=== PATIENT | female | born 1980 | race Caucasian/White ===

== ENCOUNTER 2024-10-03 07:00 | Day surgery (SDC) | payer OTHER ==
[2024-09-30 08:34] VITALS: BP 116/64
[~2024-10-03] VITALS: Ht 175.3 cm; Wt 115.0 kg
[~2024-10-03 07:00] MED LIST: BACTRIM DS TAB1 EACH PO; IBLOOD GLUCOSE TEST STRIP 1 EA TEST VI PRN; LACTATED RINGER'S 1,000 ML IV SCH; LIDOCAINE HCL 1% 5 ML SDV INJ ONE; MELOXICAM15 MG PO; MOUNJARO5 MG/0.5 M SUB-Q; VITAMIN B121000 MCG PO; VITAMIN D3125 MCG PO; XANAX0.25 MG PO
[2024-10-03 07:10] VITALS: BP 122/77
--- NOTE | 2024-10-03 07:29 | NUR ---
PT NOT AVAILABLE FOR VISIT. PROVIDED PRAYER.
[2024-10-03] MEDS ORDERED: MIDAZOLAM HCL 2 MG/2 ML VIAL ONE (09:00)
[2024-10-03] MEDS ORDERED: DEXAMETHASONE SOD PHOS 4 MG/ML VIAL ONE (09:00)
[2024-10-03] MEDS ORDERED: ondansetron HCL 4 MG/2 ML VIAL ONE (09:00)
[2024-10-03] MEDS ORDERED: ACETAMINOPHEN 1,000 MG/100 ML VIAL ONE (09:00)
[2024-10-03] MEDS ORDERED: fentaNYL citrate 100 MCG/2 ML VIAL ONE (09:00)
[2024-10-03] MEDS ORDERED: propofoL 200 MG/20 ML VIAL ONE (09:00)
[2024-10-03] MEDS ORDERED: LIDOCAINE HCL 2% 5 ML SDV ONE (09:00)
[2024-10-03] MEDS ORDERED: KETOROLAC TROMETHAMINE 30 MG/ML VIAL ONE (09:00)
[2024-10-03] MEDS ORDERED: FAMOTIDINE 20 MG/ 2 ML VIAL IV PRN (09:45)
[2024-10-03] MEDS ORDERED: HYDROmorphone HCL 1 MG/ML SYR IV PRN (09:45)
[2024-10-03] MEDS ORDERED: fentaNYL citrate 50 MCG/ML SDV IV PRN (09:45)
[2024-10-03] MEDS ORDERED: ondansetron HCL 4 MG/2 ML VIAL IV PRN ×2 (09:45)
[2024-10-03] MEDS ORDERED: NALOXONE HCL 0.4 MG SYR IV PRN ×2 (09:45)
[2024-10-03] MEDS ORDERED: MAGNESIUM HYDROXIDE/AL HYDROX 30 ML CUP PO PRN (09:45)
[2024-10-03] MEDS ORDERED: PROCHLORPERAZINE EDISYLATE 10 MG/2 ML VIAL IV PRN (09:45)
[2024-10-03] MEDS ORDERED: IBLOOD GLUCOSE TEST STRIP 1 EA TEST VI PRN (09:45)
[2024-10-03] MEDS ORDERED: droPERidol 5 MG/2 ML VIAL IV PRN (09:45)
[2024-10-03 10:25] VITALS: BP 107/60
--- NOTE | 2024-10-03 10:54 | NUR ---
10/03/24 1054 Faustina Mireles 0947- PT ARRIVES TO THE PACU WITH A NATURAL AIRWAY ON ROOM AIR. BREATHING IS EVEN AND UNLABORED. PT DENIES PAIN AND NAUSEA. SURGICAL SITE SHOWED A SMALL AMOUNT OF DRAINAGE ON THE PERIPAD. ABDOMEN IS SOFT AND NON DISTENDED. PT SHOWS NO SIGNS OF APPARENT DISTRESS. VSS. ALL MONITORS PUT IN PLACE. PT RESTING WITH EYES CLOSED. PT ORIENTED TO PACU. LR INUSING IN R FOREARM. 0950- PT WAKES EASILY TO VERBAL STIMULI. PT REQUESTING WATER. PT BACK TO RESTING WITH EYES CLOSED. PT REORIENTED TO PACU AND ASKING FOR WATER SHORTLY AFTER. 1015- PT WAKES EASILY. HOB INCREASED AND PT SIPPING ON WATER, AND TOLERATING WELL. PT REPORTS BEING UNCOMFORTABLE BUT NOT PAINFUL AND GIVES THE DISCOMFORT A 1/10. PT TALKING WITH RN. 1020- DC INSTRUCTIONS GONE OVER. NO QUESTIONS OR CONCERNS. SURGICAL SITE SHOWS NO NEW DRAINAGE. 1030- ALL MONITORS REMOVED. IV DC'D. PT DRESSING INDEPENDENTLY WITH NO ISSUES. PT HAS ALL BELONGINGS AND DC PAPERWORK. PT IS ABLE TO AMBULATE INDEPENDENTLY WITH A STEADY AND EVEN GAIT TO THE WHEELCHAIR. PT DC FROM PACU VIA WHEELCHAIR WITH VOLUNTEER AT THIS TIME.
--- NOTE | 2024-10-04 21:41 | OR ---
[facility] [address], [place] [address] Signed DATE OF OPERATION: 10/03/2024 SURGEON: Angie Qureshi DO PREOPERATIVE DIAGNOSES: 1. Abnormal uterine bleeding. 2. Endometrial polyp. POSTOPERATIVE DIAGNOSES: 1. Abnormal uterine bleeding. 2. Endometrial polyp. PROCEDURES PERFORMED: 1. Hysteroscopy, D and C. 2. Polypectomy. ANESTHESIA: MAC. ESTIMATED BLOOD LOSS: 5 mL. SPECIMEN: Endometrial curettings and polyp. FLUID DEFICIT: 150 mL. FINDINGS: Normal external genitalia with normal clitoris, urethral meatus, bilateral [place]'s, and Bartholin's glands. Normal vagina and cervix. On hysteroscopy, normal endocervical canal. Endometrial cavity demonstrated thickened irregular endometrium with multiple polyps that were excised in total, restoring normal endometrial architecture. COMPLICATIONS: None. INDICATIONS: Ms. Whitaker is a very pleasant 44-year-old female with abnormal bleeding on Nexplanon. Ultrasound demonstrated thickened irregular endometrium and likely polyp. She was Electronically Signed By: ANGIE QURESHI DO (JD) 10/04/24 2141 PATIENT NAME: KAELA WHITAKER OPERATIVE REPORT DATE OF : 82 REPORT #: [id number] PHYSICIAN: ANGIE QURESHI DO (JD) PCP: FELICIA SINGER PAC REPORT IS CONFIDENTIAL AND NOT TO BE RELEASED WITHOUT AUTHORIZATION [address] [address] Signed consented for hysteroscopy, D and C, and request that this be performed in the OR due to anxiety. The risks, benefits, and alternatives were discussed in detail with the patient. The patient understands and wished to proceed with the procedure. DESCRIPTION OF PROCEDURE: The patient was taken to the OR where a time-out was performed to confirm correct patient and correct procedure. MAC anesthesia was adequately established. The patient was prepped and draped in the dorsal lithotomy position with her feet in Yellofin stirrups. ICPs were on and running and no preoperative antibiotics or heparin was indicated. A weighted speculum was placed in the vagina and the anterior lip of the cervix was grasped with an Allis clamp. Cervix was gently dilated to #7 Hegar dilator. Operative hysteroscope was then placed in the cervical os and advanced under direct visualization into the uterine cavity. Normal endocervical canal was noted. The endometrial cavity demonstrates thickened irregular endometrium with multiple endometrial polyps. Bilateral tubal ostia were identified. MyoSure Lite device was selected and polypectomy and circumferential curettage was performed restoring normal endometrial architecture. The scope was slowly withdrawn and biopsy was sent to pathology for further evaluation. Fluid deficit noted to be 150 mL. The Allis clamp was removed and the patient was taken to PACU in good and stable condition. Sponge, needle and instrument count was correct x2 at the end of the procedure. DO JAYNE Pittman/NANCY /[id number] Copies: ~ Electronically Signed By: ANGIE QURESHI DO (JD) 10/04/24 2141 PATIENT NAME: KAELA WHITAKER OPERATIVE REPORT DATE OF : 82 REPORT #: [id number] PHYSICIAN: ANGIE QURESHI) PCP: FELICIA SINGER PAC REPORT IS CONFIDENTIAL AND NOT TO BE RELEASED WITHOUT AUTHORIZATION
--- NOTE | 2024-10-07 13:19 | PATH ---
[facility] [address] [facility], [place] [address] Signed SPECIMEN(S): A ENDOMETRIAL CURETTINGS, POLYPS SPECIMEN SOURCE: A. ENDOMETRIAL CURETTINGS, POLYPS CLINICAL HISTORY: Abnormal uterine bleeding, endometrial polyp FINAL PATHOLOGIC DIAGNOSIS: Endometrial curettings, polyps: - Weakly proliferative endometrium with polypoid features, negative for hyperplasia or atypia. JVR:cml MICROSCOPIC EXAMINATION: Histologic sections of all submitted blocks are examined by light microscopy. These findings, together with the gross examination, support the pathologic diagnosis. GROSS DESCRIPTION: The specimen, labeled and designated "Marv, R, endometrial curettings, polyps," is received in formalin and consists of multiple fragments of soft squires tissue measuring 2.8 x 2.6 x 0.5 cm in aggregate. Entirely submitted in (A1). AB (under the direct supervision of a pathologist) The Gross Description was prepared using a voice recognition system. The report was reviewed for accuracy; however, sound-alike word errors, addition and/or deletions may occur. If there is any question about this report, please contact Client Services. PERFORMING LABORATORY: Technical component was performed by [facility], [address] [place] [id number] (CLIA# [id number]). Professional interpretation was performed by [facility], [address] [place] [id number] (CLIA#: [id number]). Diagnostician: Teo Taylor MD Pathologist Electronically Signed 10/07/2024 PATIENT NAME: KAELA WHITAKER PATHOLOGY DATE OF : 82 REPORT #: [id number] PHYSICIAN: HANY ALMANZAR PCP: FELICIA SINGER PAC REPORT IS CONFIDENTIAL AND NOT TO BE RELEASED WITHOUT AUTHORIZATION [address] [address] Signed Copies: ~ PATIENT NAME: KAELA WHITAKER PATHOLOGY DATE OF : 82 REPORT #: [id number] PHYSICIAN: HANY ALMANZAR PCP: FELICIA SINGER PAC REPORT IS CONFIDENTIAL AND NOT TO BE RELEASED WITHOUT AUTHORIZATION
== END 2024-10-03 10:30 | disposition home or self-care (01) ==
LOC: DS 07:00
PROVIDERS: ATTEND Obstetrics & Gynecology
PROC: 0UB98ZZ Excision of Uterus, Via Natural or Artificial Opening Endoscopic (ICD-10-PCS; principal; 2024-10-03 08:50)
DX: N84.0 Polyp of corpus uteri (principal)
CPT/HCPCS: 00952; J0131; J1100; J1885; J2003; J2250; J2405; J2704; J3010; J7121